=== PATIENT | female | born 1965 | race Two or more races ===

== ENCOUNTER 2016-10-22 15:43 | Emergency (ER) | payer SELFPAY ==
[~2016-10-22 15:43] MED LIST: LISI1TAB5 PO; LORA10TA55 PO; MULT1TAB52 PO; TAMO20TA PO
[2016-10-22] MEDS ORDERED: IV NORMAL SALINE 1000ML BAG 1,000 ML IV SCH (16:19)
--- NOTE | 2016-10-22 16:24 | EKG ---
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
--- NOTE | 2016-10-22 16:27 | PHYS DOC ---
Past Medical History Past Medical History: GERD, Hypertension Additional Past Medical Histor: LEFT BREAST CA Past Surgical History: Other Additional Past Surgical Histo: LUMPHECTOMY Alcohol Use: None Drug Use: None Adult General Chief Complaint Chief Complaint: ABDOMINAL PAIN HPI HPI Patient is a 51 year old female who presents with complaint of abdominal pain for the past 5 days. Pace states the pain is located in the middle of her abdomen. Patient states that her pain radiates down towards her lower abdomen. Patient describes the pain as dull. Patient rates her pain currently as 8 out of 10. Patient states that she started having nausea, vomiting, and diarrhea today. Patient denies any fevers but has been having chills. The patient states that she has been exposed to her daughter was diagnosed with mono over the past few weeks. The patient denies any shortness of breath or chest pain associated with her symptoms. Patient has not taken any medicine to help with her symptoms at this time. Review of Systems Review of Systems Constitutional: Denies fever or chills [] Eyes: Denies change in visual acuity, redness, or eye pain [] HENT: Denies nasal congestion or sore throat [] Respiratory: Denies cough or shortness of breath [] Cardiovascular: Denies chest pain or edema [] GI: Abdominal pain, nausea, vomiting, diarrhea [] : Denies dysuria or hematuria [] Musculoskeletal: Denies back pain or joint pain [] Integument: Denies rash or skin lesions [] Neurologic: Denies headache, focal weakness or sensory changes [] Current Medications Current Medications Current Medications Medications (Trade) Dose Ordered Sig/Hank Start Time Stop Time Status Last Admin Dose Admin Famotidine (Pepcid) 20 mg 1X ONCE 10/22/16 16:30 10/22/16 16:31 DC 10/22/16 17:08 20 MG Fentanyl Citrate (Fentanyl 2ml Vial) 50 mcg PRN Q15MIN PRN 10/22/16 16:30 10/23/16 16:29 10/22/16 17:10 50 MCG Info (Do NOT chart on this entry -- for MONITORING) 1 each PRN DAILY PRN 10/22/16 16:45 10/24/16 16:44 Iohexol (Omnipaque 300 Mg/ml) 75 ml 1X ONCE 10/22/16 16:30 10/22/16 16:31 DC 10/22/16 17:20 75 ML Ondansetron HCl (Zofran) 4 mg 1X ONCE 10/22/16 16:30 10/22/16 16:31 DC 10/22/16 17:07 4 MG Sodium Chloride 1,000 ml @ 1,000 mls/hr Q1H 10/22/16 16:19 10/22/16 17:18 DC 10/22/16 17:08 1,000 MLS/HR Allergies Allergies Allergies Coded Allergies Type Severity Reaction Last Updated Verified No Known Drug Allergies 05/31/13 No Physical Exam Physical Exam Constitutional: Alert, obese, afebrile, appears in mild to moderate discomfort. [] HENT: Normocephalic, atraumatic, bilateral external ears normal, oropharynx moist, no oral exudates, nose normal. [] Eyes: PERRLA, EOMI, conjunctiva normal, no discharge. [] Neck: Normal range of motion, no tenderness, supple, no stridor. [] Cardiovascular:Heart rate regular rhythm, no murmur [] Lungs & Thorax: Bilateral breath sounds clear to auscultation [] Abdomen: Bowel sounds normal, soft, midepigastric and periumbilical tenderness to palpation, mild guarding, no rebound tenderness present, no masses, no pulsatile masses. [] Skin: Warm, dry, no erythema, no rash. [] Back: No tenderness, no CVA tenderness. [] Extremities: No tenderness, no cyanosis, no clubbing, ROM intact, no edema. [] Neurologic: Alert and oriented X 3, normal motor function, normal sensory function, no focal deficits noted. [] Current Patient Data Vital Signs Vital Signs Date Time Temp Pulse Resp B/P (MAP) Pulse Ox O2 Delivery O2 Flow Rate FiO2 10/22/16 17:30 84 18 122/78 (93) 99 Room Air 10/22/16 15:58 98.0 98.0 Lab Values Laboratory Tests Test 10/22/16 16:30 10/22/16 17:20 White Blood Count 8.8 x10^3/uL (4.0-11.0) Red Blood Count 4.38 x10^6/uL (3.50-5.40) Hemoglobin 12.5 g/dL (12.0-15.5) Hematocrit 37.2 % (36.0-47.0) Mean Corpuscular Volume 85 fL (79-100) Mean Corpuscular Hemoglobin 29 pg (25-35) Mean Corpuscular Hemoglobin Concent 34 g/dL (31-37) Red Cell Distribution Width 13.9 % (11.5-14.5) Platelet Count 232 x10^3/uL (140-400) Neutrophils (%) (Auto) 83 % (31-73) H Lymphocytes (%) (Auto) 11 % (24-48) L Monocytes (%) (Auto) 4 % (0-9) Eosinophils (%) (Auto) 2 % (0-3) Basophils (%) (Auto) 0 % (0-3) Neutrophils # (Auto) 7.2 x10^3uL (1.8-7.7) Lymphocytes # (Auto) 1.0 x10^3/uL (1.0-4.8) Monocytes # (Auto) 0.3 x10^3/uL (0.0-1.1) Eosinophils # (Auto) 0.2 x10^3/uL (0.0-0.7) Basophils # (Auto) 0.0 x10^3/uL (0.0-0.2) Sodium Level 145 mmol/L (136-145) Potassium Level 3.9 mmol/L (3.5-5.1) Chloride Level 107 mmol/L (98-107) Carbon Dioxide Level 28 mmol/L (21-32) Anion Gap 10 (6-14) Blood Urea Nitrogen 14 mg/dL (7-20) Creatinine 0.7 mg/dL (0.6-1.0) Estimated GFR (Cockcroft-Gault) 88.2 BUN/Creatinine Ratio 20 (6-20) Glucose Level 107 mg/dL (70-99) H Calcium Level 8.8 mg/dL (8.5-10.1) Total Bilirubin 0.8 mg/dL (0.2-1.0) Aspartate Amino Transferase (AST) 19 U/L (15-37) Alanine Aminotransferase (ALT) 27 U/L (14-59) Alkaline Phosphatase 66 U/L (46-116) Total Protein 7.2 g/dL (6.4-8.2) Albumin 3.4 g/dL (3.4-5.0) Albumin/Globulin Ratio 0.9 (1.0-1.7) L Lipase 123 U/L (73-393) Heterophil Agglutinins Negative (NEGATIVE) Urine Color Juanita Urine Clarity Turbid Urine pH 5.0 Urine Specific [place] >=1.030 Urine Protein Negative mg/dL (NEG-TRACE) Urine Glucose (UA) Negative mg/dL (NEG) Urine Ketones (Stick) 15 mg/dL (NEG) Urine Blood Negative (NEG) Urine Nitrite Negative (NEG) Urine Bilirubin Negative (NEG) Urine Urobilinogen Dipstick 0.2 mg/dL (0.2 mg/dL) Urine Leukocyte Esterase Trace (NEG) Urine RBC 0 /HPF (0-2) Urine WBC 1-4 /HPF (0-4) Urine Squamous Epithelial Cells Occ /LPF Urine Amorphous Sediment Present /HPF Urine Bacteria 0 /HPF (0-FEW) Urine Mucus Mod /LPF Laboratory Tests 10/22/16 16:30 Laboratory Tests 10/22/16 16:30 EKG EKG Interpreted by me: Heart rate 89, sinus rhythm, normal intervals, normal axis, T -wave inversions in lead 3 and aVF, no acute ST elevations or depressions [] Radiology/Procedures Radiology/Procedures [facility] [address] [place] [address] IMAGING REPORT Signed PATIENT: VAUGHN ROSAS ACCOUNT: [id number] : 1965 LOCATION: ER AGE: 51 SEX: F EXAM STATUS: REG ER ORD. PHYSICIAN: CRUZ MONTANEZ MD REASON: abdominal pain PROCEDURE: CT ABD PELV W/ IV CONTRST ONLY CT Abdomen and Pelvis With Intravenous Contrast: History: Abdominal pain with vomiting and diarrhea. Symptoms for 5 days. Comparison: None. Technique: After administration of intravenous contrast administration, 75 mL Omnipaque-300, CT of the abdomen and pelvis was performed. Exposure: One or more of the following individualized dose reduction techniques were utilized for this examination: 1. Automated exposure control 2. Adjustment of the mA and/or kV according to patient size 3. Use of iterative reconstruction technique Findings: Evaluation of enteric structures may be limited by lack of oral contrast. Liver, spleen, pancreas, gallbladder, bilateral adrenal glands are unremarkable. Bilateral kidneys enhance symmetrically. No bowel obstruction is identified. Appendix is without evidence of inflammation. Urinary bladder is unremarkable. Intrauterine device is present. A small amount of free fluid present in the pelvis, which the patient is premenopausal would be within limits. There is questionable mild fat stranding adjacent to the colon beginning at the mid transverse colon through at least the sigmoid colon. No perforation or abscess is identified. Impression: Question mild inflammation involving the majority of the colon. Findings might represent nonspecific colitis. Electronically signed by: Herminio Parada MD (10/22/2016 5:43 PM) DICTATED and SIGNED BY: HERMINIO PARADA MD DATE: 10/22/16 9098 CC: CRUZ MONTANEZ MD; UNKNOWN PCP NAME ~ [] Course & Med Decision Making Course & Med Decision Making Pertinent Labs and Imaging studies reviewed. (See chart for details) Patient was given IV fluids, fentanyl, Pepcid, Zofran in the emergency department. On reevaluation, patient states her symptoms have improved at this time. The patient's CT scan shows evidence of colitis. Patient will be started on Levaquin and Flagyl for treatment of presumed bacterial colitis. Advised follow-up in 3 days a primary doctor for reevaluation and return to emergency department for any worsening symptoms. Patient voiced understanding and in agreement with treatment plan. Dragon Disclaimer Dragon Disclaimer This electronic medical record was generated, in whole or in part, using a voice recognition dictation system. Departure Departure Impression: Primary Impression: Colitis Disposition: 01 HOME, SELF-CARE Condition: IMPROVED Referrals: PAM LARSON MD (PCP) Patient Instructions: Colitis Additional Instructions: Follow-up with your primary doctor in 3 days for reevaluation. Return to the emergency department for any worsening symptoms. Scripts Ondansetron (ZOFRAN ODT) 4 Mg Tab.rapdis 1 TAB SL Q8HRS Y for NAUSEA/VOMITING, #15 TAB Prov: CRUZ MONTANEZ MD 10/22/16 Hydrocodone/Apap 5-325 (NORCO 5-325 TABLET) 1 Each Tablet 1-2 TAB PO Q4-6HRS Y for PAIN, #15 TAB Prov: CRUZ MONTANEZ MD 10/22/16 Levofloxacin (LEVAQUIN) 750 Mg Tablet 1 TAB PO DAILY, #10 TAB Prov: CRUZ MONTANEZ MD 10/22/16 Metronidazole (FLAGYL) 500 Mg Tablet 500 MG PO TID, #30 TAB Prov: CRUZ MONTANEZ MD 10/22/16 CRUZ MONTANEZ MD Oct 22, 2016 16:27
[2016-10-22] MEDS ORDERED: IOHEXOL 300 MG/ML 75 ML VIAL IV ONE (16:30)
[2016-10-22] MEDS ORDERED: FAMOTIDINE 20 MG/2 ML VIAL IVP ONE (16:30)
[2016-10-22] MEDS ORDERED: ONDANSETRON PF 4 MG/2 ML VIAL. IV ONE (16:30)
[2016-10-22] MEDS ORDERED: fentaNYL PF VIAL 100 MCG/2 ML VIAL IV PRN (16:30)
[2016-10-22 16:39] LABS: BASO % 0 % (0-3); EOS % 2 % (0-3); HEMATOCRIT 37.2 % (36.0-47.0); HEMOGLOBIN 12.5 g/dL (12.0-15.5); LYMPH % 11 % (24-48); MEAN CORPUSCULAR HEMOGLOBIN 29 pg (25-35); MEAN CORPUSCULAR HGB CONC 34 g/dL (31-37); MEAN CORPUSCULAR VOLUME 85 fL (79-100); MONO % 4 % (0-9); NEUT % 83 % (31-73); PLATELET COUNT 232 x10^3/uL (140-400); RED BLOOD COUNT 4.38 x10^6/uL (3.50-5.40); RED CELL DISTRIBUTION WIDTH 13.9 % (11.5-14.5); WHITE BLOOD COUNT 8.8 x10^3/uL (4.0-11.0)
[2016-10-22] MEDS ORDERED: CONTRAST GIVEN MC PRN (16:45)
[2016-10-22 17:05] LABS: ALBUMIN 3.4 g/dL (3.4-5.0); ALBUMIN/GLOBULIN RATIO 0.9 (1.0-1.7); CALCIUM 8.8 mg/dL (8.5-10.1); CREATININE 0.7 mg/dL (0.6-1.0); GFR 88.2; POTASSIUM 3.9 mmol/L (3.5-5.1); TOTAL BILIRUBIN 0.8 mg/dL (0.2-1.0); TOTAL PROTEIN 7.2 g/dL (6.4-8.2)
[2016-10-22 17:35] LABS: BILIRUBIN,URINE NEGATIVE (NEG); GLUCOSE,URINE NEGATIVE (NEG); NITRITE,URINE NEGATIVE (NEG); PROTEIN,URINE NEGATIVE (NEG-TRACE); UROBILINOGEN,URINE 0.2 mg/dL (0.2 mg/dL)
--- NOTE | 2016-10-22 17:46 | RAD ---
CT Abdomen and Pelvis With Intravenous Contrast: History: Abdominal pain with vomiting and diarrhea. Symptoms for 5 days. Comparison: None. Technique: After administration of intravenous contrast administration, 75 mL Omnipaque-300, CT of the abdomen and pelvis was performed. Exposure: One or more of the following individualized dose reduction techniques were utilized for this examination: 1. Automated exposure control 2. Adjustment of the mA and/or kV according to patient size 3. Use of iterative reconstruction technique Findings: Evaluation of enteric structures may be limited by lack of oral contrast. Liver, spleen, pancreas, gallbladder, bilateral adrenal glands are unremarkable. Bilateral kidneys enhance symmetrically. No bowel obstruction is identified. Appendix is without evidence of inflammation. Urinary bladder is unremarkable. Intrauterine device is present. A small amount of free fluid present in the pelvis, which the patient is premenopausal would be within limits. There is questionable mild fat stranding adjacent to the colon beginning at the mid transverse colon through at least the sigmoid colon. No perforation or abscess is identified. Impression: Question mild inflammation involving the majority of the colon. Findings might represent nonspecific colitis. Electronically signed by: Herminio Diane MD (10/22/2016 5:43 PM)
[2016-10-22 17:50] VITALS: BP 115/74
[2016-10-22 17:50] LABS: NEGATIVE OBC MONO NEG; POSITIVE OBC MONO POS
[2016-10-22 18:06] LABS: RBC,URINE 0 /HPF (0-2)
[2016-10-22 18:07] LABS: BACTERIA,URINE 0 /HPF (0-FEW); SQUAMOUS EPITHELIAL CELL,UR OCC /LPF
[2016-10-22] MEDS ORDERED: HYDR-971 PO (18:28)
[2016-10-22] MEDS ORDERED: LEVO750T31 PO (18:28)
[2016-10-22] MEDS ORDERED: METR500T PO (18:28)
[2016-10-22] MEDS ORDERED: ONDA4TAB10 SL (18:28)
[2016-10-22] MEDS ORDERED: metroNIDAZOLE 500 MG TABLET PO ONE (18:30)
== END 2016-10-22 18:41 | disposition home or self-care (01) ==
LOC: ER 15:43
DX: K52.9 Noninfective gastroenteritis and colitis, unspecified (principal); R11.2 Nausea with vomiting, unspecified; I10 Essential (primary) hypertension; K21.9 Gastro-esophageal reflux disease without esophagitis; Z85.3 Personal history of malignant neoplasm of breast; Z98.890 Other specified postprocedural states
CPT/HCPCS: 36415; 74177; 80053; 81001; 83690; 85027; 86308; 87086; 93005; 96361; 96374; 96375; 99285; J2405; J3010; J7030; Q9967; S0028